=== PATIENT | female | born 1965 | race Caucasian/White ===

== ENCOUNTER 2017-07-26 09:47 | Observation (INO) | payer BC ==
[2017-07-26] MEDS ORDERED: Bupivacaine 0.25% SDV* 30 ML ONE (11:35)
[2017-07-26] MEDS ORDERED: Morphine INJ* 4 MG/ML 1 ML SYRINGE IV PRN (11:57)
[2017-07-26] MEDS ORDERED: Ondansetron INJ* 2 MG/ML VIAL IV PRN ×3 (11:58→16:16)
[2017-07-26] MEDS ORDERED: Lactated Ringers 500 ml BAG* 500 ML IV ONE (13:00)
[2017-07-26] MEDS ORDERED: ceFOXitin 2 GM IVPREMIX* 2 GM/50 ML BAG ONE (13:53)
[2017-07-26] MEDS ORDERED: ceFOXitin 2 GM IVPREMIX* 2 GM/50 ML BAG IVPB ONE (14:00)
[2017-07-26] MEDS ORDERED: Midazolam* 1 MG/ML 5 ML VIAL (5 MG) ONE (15:19)
[2017-07-26] MEDS ORDERED: fentaNYL* 50 MCG/ML 2 ML VIAL (100 MCG VIAL) ONE ×2 (15:24→17:28)
[2017-07-26] MEDS ORDERED: Atracurium* 10 MG/ML 10 ML VIAL ONE (15:24)
[2017-07-26] MEDS ORDERED: Propofol* 10 MG/ML 20 ML BTL IV PUSH ONE (15:24)
[2017-07-26] MEDS ORDERED: Succinylcholine* 20 MG/ML 10 ML VIAL ONE (15:24)
[2017-07-26] MEDS ORDERED: Dexamethasone IV* 4 MG/ML 1 ML (4 MG) ONE (15:58)
[2017-07-26] MEDS ORDERED: Ketorolac INJ* 30 MG/ML 1 ML VIAL ONE (15:58)
[2017-07-26] MEDS ORDERED: Ondansetron INJ* 2 MG/ML VIAL ONE (15:58)
[2017-07-26] MEDS ORDERED: HYDROmorphone* 1 MG/ML 1 ML SYR IV PRN ×2 (16:00→16:16)
[2017-07-26] MEDS ORDERED: DiMENhydriNATE IV* 50 MG/ML VIAL IV PUSH PRN (16:00)
[2017-07-26] MEDS ORDERED: oxyCODONE TAB* 5 MG TAB PO PRN (16:00)
[2017-07-26] MEDS ORDERED: HYDROcodone/ACETAMIN 5-325 MG* 1 TAB PO PRN (16:00)
[2017-07-26] MEDS ORDERED: Neostigmine Methylsulfate* 2 MG/2 ML SYRINGE ONE (16:12)
[2017-07-26] MEDS ORDERED: oxyCODONE/Acetamin 5/325 MG* TAB PO PRN (16:16)
[2017-07-26] MEDS ORDERED: Acetaminophen TAB* 325 MG PO PRN (16:20)
[2017-07-26] MEDS: fentaNYL* 50 MCG/ML 2 ML VIAL (100 MCG VIAL) IV PRN ×2 (17:29→17:34)
[2017-07-26] MEDS ORDERED: ZOSYN 3.375 GM x ONE DOSE over 30 miuntes IVPB ×4 (18:00→21:15)
[2017-07-26] MEDS: Ketorolac INJ* 30 MG/ML 1 ML VIAL IV SCH ×2 (21:16→22:59)
[2017-07-27] MEDS: NS 0.9% 1000 ML* 1,000 ML IV SCH ×2 (01:23→11:20)
[2017-07-27] MEDS: ZOSYN 3.375 GM Q8H per EXTENDED INFUSION IVPB SCH ×4 (01:53→10:28)
--- NOTE | 2017-07-27 03:36 | OP ---
CC: Dr. Samantha Rboertson * DATE OF OPERATION: 07/26/17 - ROOM #332 DATE OF : 69 SURGEON: Josr Smith MD WELDING MACHINE OPERATOR ARC: None. ANESTHESIOLOGIST: Dr. Johnson. ANESTHESIA: General anesthetic, local infiltration. PRE-OP DIAGNOSIS: Appendicitis. POST-OP DIAGNOSIS: Appendicitis. OPERATIVE PROCEDURE: Laparoscopic appendectomy. OPERATIVE FINDINGS: Acute appendicitis with suppurative changes and a small perforation with a fecalith. DESCRIPTION OF PROCEDURE: The patient was supine on the operative table. After adequate general anesthetic, compression stockings, Carly Hugger warmer, and intravenous antibiotics, the abdomen was prepped with antiseptic and draped in a sterile fashion. Local infiltrative anesthesia was administered and a small umbilical incision was created. A blunt port cannula was placed and insufflation was carried out with carbon-dioxide. Additional cannula 5 mm left lower quadrant and left mid abdomen were placed through a small stab wound under direct vision. The appendix was suppurative and upon further examination , there was a small perforation at the base of the appendix at the site of the fecalith. The fecalith popped out, but this was retrieved. Appendectomy was carried out using a kimbrough stapler load for the mesoappendix. The base of the appendix was divided using firings of the marks load stapler which completely encompassed the area of the perforation and created a very nice staple line. Everything was in good condition. The appendix was placed in a retrieval bag and brought out through the umbilical site and sent in formalin for pathologic evaluation along with the fecalith. The operative field was well irrigated with warm saline solution. Free fluid was suctioned out. No undrained collections could be identified and the cannula removed. Pneumoperitoneum allowed to escape. Umbilical fashion was closed with 0 Polysorb, skin with 5-0 Polysorb followed by Steri-Strips. She tolerated the procedure well, was awakened and brought to Recovery in good condition. No complications. No drains. Pathologic specimen appendix. Sponge and instrument count correct. Estimated blood lossless than 20 mL. [id number]/[facility] #: [id number] [facility]
[2017-07-27] MEDS: Ketorolac INJ* 30 MG/ML 1 ML VIAL IV SCH ×2 (05:29→11:14)
--- NOTE | 2017-07-27 13:42 | PN ---
Progress Note - Progress Note Date of Service: 07/27/17 SOAP: Subjective: Patient seen and examined. Doing better, has no complaints. Tolerating full liquids, passing flatus, ambulatory. Wants to go home. Objective: VSS, afebrile Lungs CTA bilat. Heart RRR, no murmurs. Abdomen soft, NT. ND. Incisions clean, dry and intact. Assessment: POD#1, s/p laparosocpic appendectomy, doing well. Plan: Discharge to home on PO Augmentin and Percocet F/U with Dr. Smith at [place] office next Tuesday
[2017-07-27 15:50] VITALS: BP 114/68
== END 2017-07-27 16:35 | disposition home or self-care (01) ==
LOC: SSU 11:38
PROVIDERS: ADMIT Surgery; ATTEND Surgery
DX: K35.3 Acute appendicitis with localized peritonitis (principal); K38.1 Appendicular concretions; E66.9 Obesity, unspecified; G47.33 Obstructive sleep apnea (adult) (pediatric); I48.91 Unspecified atrial fibrillation
CPT/HCPCS: 88304; 93005; 96365; 96375; A9270-GY; G0378; J0330; J0694; J1100; J1885; J2250; J2270; J2405; J2543; J2704; J3010

== ENCOUNTER 2018-01-02 19:07 | Inpatient (IN) | payer BC ==
[2018-01-02] MEDS ORDERED: Diltiazem IV* 5 MG/ML 5 ML VIAL (for loading dose/IV Push) (25 MG) IV SLOW PU ONE (19:49)
[2018-01-02] MEDS ORDERED: NS 0.9% 1000 ML* 1,000 ML IV ONE (19:49)
[2018-01-02] MEDS ORDERED: Digoxin IV* 0.5 MG/2 ML AMP (0.25 MG/ML) IV SLOW PU ONE (19:49)
[2018-01-02] MEDS ORDERED: Diltiazem DRIP* 100 MG/100 ML ADDV.BAG IVPB ONE (19:50)
[2018-01-02] MEDS ORDERED: Enoxaparin(*) 100 MG/ML SYR SUBCUT ONE (19:50)
--- NOTE | 2018-01-02 20:32 | ED ---
Bryson Vargas Thomas, scribed for Shawnee Lagunas MD on 01/02/18 at 2006 . Palpitations / Dysrhythmia - HPI Summary HPI Summary: The patient is a 52 year old female transferred from [facility] with complaints of racing palpitations for the last two days. The patient denies any chest pain, shortness of breath, or any other symptoms at this time. The patient had a similar episode of racing palpitation in 2014 that lasted for 12- 24 hours before she was cardioverted. She denies any other pertinent past medical history or medication use. - History of Current Complaint Chief Complaint: EDDysrhythmPalp Time Seen by Provider: 01/02/18 19:42 Hx Obtained From: Patient Onset/Duration: Lasting Days - 2, Still Present Timing: Constant Severity Initially: Severe Severity Currently: Moderate Alleviating: Nothing Associated Signs & Symptoms: Negative - CP, SOB - Allergy/Home Medications Allergies/Adverse Reactions: Allergies Allergy/AdvReac Type Severity Reaction Status Date / Time No Known Allergies Allergy Verified 10/14/15 06:42 PMH/Surg Hx/FS Hx/Imm Hx Endocrine/Hematology History: Reports: Hx Anticoagulant Therapy, Hx Blood Transfusions, Hx Anemia Denies: Hx Bone Marrow Disease, Hx Diabetes, Hx Systemic Lupus Erythematosus , Hx Sickle Cell Disease, Hx Thyroid Disease Cardiovascular History: Reports: Other Cardiovascular Problems/Disorders - Atrial fibrillation Respiratory History: Reports: Hx Pneumonia, Hx Sleep Apnea, Other Respiratory Problems/Disorders - pneumonia History: Reports: Hx Kidney Stones Musculoskeletal History: Reports: Other Musculoskeletal History - bilateral carpal tunnel Sensory History: Reports: Hx Contacts or Glasses - reading glasses Denies: Hx Eye Injury, Hx Eye Prosthesis, Hx Deafness, Hx Hearing Aid Opthamlomology History: Reports: Hx Contacts or Glasses - reading glasses Denies: Hx Eye Injury, Hx Eye Prosthesis - Surgical History Surgery Procedure, Year, and Place: hysterectomy 2012 Hx Anesthesia Reactions: No Infectious Disease History: No Infectious Disease History: Denies: Traveled Outside the [place] in Last 30 Days - Family History Known Family History: Negative: Blood Disorder - Social History Alcohol Use: Rare Substance Use Type: Reports: None Smoking Status (MU): Never Smoked Tobacco Review of Systems Negative: Fever Positive: Palpitations. Negative: Chest Pain Negative: Shortness Of Breath All Other Systems Reviewed And Are Negative: Yes Physical Exam - Summary Physical Exam Summary: VITAL SIGNS: Reviewed. GENERAL:~Patient is a well-developed and nourished FEMALE who is lying comfortable in the stretcher. Patient is not in any acute respiratory distress. HEAD AND FACE: No signs of trauma. No ecchymosis, hematomas or skull depressions. No sinus tenderness. EYES: PERRLA, EOMI x 2, No injected conjunctiva, no nystagmus. EARS: Hearing grossly intact. Ear canals and tympanic membranes are within normal limits. MOUTH: Oropharynx within normal limits. NECK: Supple, trachea is midline, no adenopathy, no JVD, no carotid bruit, no c- spine tenderness, neck with full ROM. CHEST: Symmetric, no tenderness at palpation LUNGS: Clear to auscultation bilaterally. No wheezing or crackles. CVS: Irregular tachycardia. S1 and S2 present, no murmurs or gallops appreciated. ABDOMEN: Soft, non-tender. No signs of distention. No rebound no guarding, and no masses palpated. Bowel sounds are normal. EXTREMITIES: FROM in all major joints, no edema, no cyanosis or clubbing. NEURO: Alert and oriented x 3. No acute neurological deficits. Speech is normal and follows commands. SKIN: Dry and warm Triage Information Reviewed: Yes Vital Signs On Initial Exam: Initial Vitals Temp Pulse Resp BP Pulse Ox 98 F 133 18 107/71 97 01/02/18 19:27 01/02/18 19:27 01/02/18 19:27 01/02/18 19:27 01/02/18 19:27 Vital Signs Reviewed: Yes Diagnostics - Vital Signs Vital Signs Temp Pulse Resp BP Pulse Ox 01/02/18 19:30 131 21 107/71 97 01/02/18 19:28 131 21 97 01/02/18 19:27 98 F 133 18 107/71 97 - Laboratory Lab Statement: Any lab studies that have been ordered have been reviewed, and results considered in the medical decision making process. Course/Dx - Course Assessment/Plan: The patient is a 52 year old female presenting with racing palpitations for the last two days. In the ED she was given Digoxin, Diltiazem, Lovenox, and IV fluids. She is admitted to Dr. Castillo. Diagnosis is atrial fibrillation. - Diagnoses Provider Diagnoses: Atrial fibrillation - Physician Notifications Discussed Care Of Patient With: Jerri Castillo Time Discussed With Above Provider: 20:31 Instructed by Provider To: Admit As Inpatient Discharge - Discharge Plan Condition: Stable Disposition: ADMITTED TO [facility] Referrals: No Primary Care Phys,NOPCP [Primary Care Provider] - The documentation as recorded by the Bryson adhikari Thomas accurately reflects the service I personally performed and the decisions made by me, Shawnee Lagunas MD.
[2018-01-02] MEDS ORDERED: Metoprolol Tartrate IV* 1 MG/ML 5 ML VIAL IV ONE (21:09)
[2018-01-02] MEDS ORDERED: Al Hydrox/Mg Hydrox/Simet LIQ* 30 ML UDC PO PRN (21:29)
[2018-01-02] MEDS ORDERED: Ondansetron INJ* 2 MG/ML VIAL IV PRN (21:29)
[2018-01-02] MEDS ORDERED: Acetaminophen TAB* 325 MG PO PRN (21:29)
[2018-01-02] MEDS ORDERED: Diltiazem IV VIAL* 125 MG in NS 0.9% 100 ML* 100 ML IV ONE (22:00)
[2018-01-02] MEDS ORDERED: Diltiazem DRIP* 100 MG/100 ML ADDV.BAG IVPB SCH (22:00)
[2018-01-02] MEDS: Diltiazem IV VIAL* 125 MG in NS 0.9% 100 ML* 100 ML IV SCH (22:40)
--- NOTE | 2018-01-02 23:04 | HP ---
CC: Dr. Robertson * HISTORY AND PHYSICAL: DATE OF ADMISSION: 01/02/18 TIME OF EVALUATION: 2099 PRIMARY CARE PHYSICIAN: Dr. Robertson. CHIEF COMPLAINT: Fluttering and chest discomfort. HISTORY OF PRESENT ILLNESS: This is a 52-year-old female with a past medical history of atrial fibrillation and obstructive sleep apnea, who transferred from [place] for rapid atrial fibrillation. The patient states she was cardioverted back in 2014 and she states she has not had any problems since then , but gets flutters off and on, on an average of few times a week. She states on Tuesday, the , she started getting fluttering and it never stopped. She was having some shortness of breath on exertion, some chest tightness. She was getting diaphoretic when exerting herself. No nausea. She went to [facility] for further evaluation. She denies any changes in her weight. She denies ever having a stress test. She states she drinks about 16 ounces of ice tea a day. She states she was diagnosed with obstructive sleep apnea, but does not wear the CPAP. Otherwise, remaining review of systems is negative. She recently had a URI illness, but it has improved about a month ago. At [place], the patient was given Lopressor 5 mg, Cardizem 10 mg and started on a drip, but her heart rate did not show significant improvement and remained in the 120s. She also had a slight bump in her troponin. The decision was made to transfer here for further Cardiology evaluation. The hospitalist service was called for further evaluation. PAST MEDICAL HISTORY: 1. History of atrial fibrillation, cardioverted in 2014. 2. Obstructive sleep apnea, does not wear her CPAP. PAST SURGICAL HISTORY: Hysterectomy. MEDICATIONS: None. ALLERGIES: No known drug allergies. FAMILY HISTORY: She states she is not sure, but her brother may have had a heart attack when he was 20, but she is not clear. Her mother at age 77 from dementia and congestive heart failure. Her father at age 83 from CHF and COPD. SOCIAL HISTORY: The patient lives at home with her , daughter, and 2 sons. She has 4 children. No history of tobacco. Rare alcohol use. 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 Her is her healthcare proxy. Code status is full code. REVIEW OF SYSTEMS: A 14-point review of systems as mentioned in the HPI, otherwise negative. PHYSICAL EXAMINATION GENERAL: No acute distress, resting comfortably with her 2 daughters and her son- in-law at the bedside. VITAL SIGNS: Temp 98, pulse rate 132, respiratory rate 24, oxygen saturation 98 % on room air, blood pressure 118/82. HEENT: Head normocephalic. Pupils equal and reactive. Anicteric. Oropharynx : Mucous membranes moist. NECK: Supple. No lymphadenopathy. RESPIRATORY: Clear to auscultation. No wheezes, rhonchi, rales. CARDIAC: Rapid rate. Irregularly irregular rate and rhythm. ABDOMEN: Soft, nontender, nondistended. EXTREMITIES: No clubbing, cyanosis, or edema. +2 DPs. NEUROLOGIC: Alert and oriented x3. No focal neurological deficits. DIAGNOSTIC STUDIES/LAB DATA: TSH here is 1.16. [place] laboratory data: Sodium 144, potassium 4.0, chloride 106, bicarb 24, BUN 22, creatinine 0.9. Troponin 0.029. White count 10, hemoglobin 14, hematocrit 42, platelets 249, 000. Radiographic data shows rapid atrial fibrillation with some ST depression. Chest x- ray from [place] showed low lung volumes with mild apparent pulmonary vascular congestion and mild apparent cardiomegaly. No focal consolidation or pleural effusion. ASSESSMENT: This is a 52-year-old female with a past medical history of atrial fibrillation, obstructive sleep apnea, does not wear a CPAP, presented to the emergency room with rapid atrial fibrillation from the [facility]. 1. Rapid atrial fibrillation. Assessment: The patient has known rapid atrial fibrillation, on 5 mg of diltiazem. No history of having a stress test in the past, could be ischemic related, could be related to her untreated obstructive sleep apnea. Plan: We will start her on Eliquis. We will titrate her diltiazem drip up to 10. Admit her to the ICU. Trend her troponin. Repeat her labs and her INR and troponin in the morning including a lipid panel as well. We will follow up with an EKG in the morning and I spoke with Dr. Rangel for plans for cardioversion. 2. Obstructive sleep apnea. See if she is willing to go on the CPAP this evening. 3. FEN. Heart healthy diet, n.p.o. in the morning. 4. DVT prophylaxis. The patient scores moderate risk. She is being started on Eliquis. 5. Code status is full code. TIME SPENT: Greater than 50 minutes spent doing the history and physical, more than half the time spent in direct patient contact. [id number]/[facility] #: [id number] DIAZ
[2018-01-03] MEDS: Apixaban* 5 MG TAB PO SCH ×3 (00:56→21:36)
[2018-01-03 06:03] LABS: ABS Basophils 0.1 10^3/ul (0-0.2); ABS Eosinophils 0.2 10^3/ul (0-0.6); ABS Lymphocytes 2.4 10^3/ul (1.0-4.8); ABS Monocytes 0.4 10^3/ul (0-0.8); ABS Neutrophils 3.5 10^3/ul (1.5-7.7); ABS Nucleated RBC 0 10^3/ul; Eosinophil % 3.1 % (0-6); Hematocrit 37 % (35-47); Hemoglobin 12.3 g/dl (12.0-16.0); Lymphocyte % 36.6 % (25-47); Mean Corpuscular HGB Conc 33 g/dl (31-36); Mean Corpuscular Hemoglobin 29 pg (27-31); Mean Corpuscular Volume 86 fL (80-97); Mean Platelet Volume 10 um3 (7.4-10.4); Nucleated Red Blood Cells % 0.1; Platelet Count 194 10^3/ul (150-450); Red Blood Count 4.28 10^6/ul (4.0-5.4); Red Cell Distribution Width 15 % (10.5-15); White Blood Count 6.6 10^3/ul (3.5-10.8)
[2018-01-03 06:14] LABS: INR 1.16 (0.77-1.02)
[2018-01-03 06:24] LABS: EGFR Non-African American 105.8 (>60)
[2018-01-03] MEDS: Diltiazem IV VIAL* 125 MG in NS 0.9% 100 ML* 100 ML IV SCH (08:35)
[2018-01-03] MEDS ORDERED: Influenza VAC *QUAD* 2017-18* 0.5 ML SYRINGE IM ONE (09:00)
[2018-01-03] MEDS: Aspirin EC TAB* 81 MG TAB.EC PO SCH (10:29)
[2018-01-03] MEDS ORDERED: Naloxone* 0.4 MG/ML 1 ML VIAL ONE (12:08)
[2018-01-03] MEDS ORDERED: fentaNYL* 50 MCG/ML 2 ML VIAL (100 MCG VIAL) ONE (12:08)
[2018-01-03] MEDS ORDERED: Lidocaine 2% VISCOUS* 15 ML UDC ONE (12:08)
[2018-01-03] MEDS ORDERED: Flumazenil* 0.1 MG/ML 5 ML MDV ONE (12:08)
[2018-01-03] MEDS ORDERED: Midazolam* 1 MG/ML 10 ML VIAL (10 MG) ONE (12:09)
[2018-01-03] MEDS ORDERED: Metoprolol Succinate XL TAB* 25 MG PO ONE (14:00)
--- NOTE | 2018-01-03 16:50 | TEE ---
Patient: DARREN HAWK Rec#: [id number] : 1965 Date: 01/03/2018 Age: 52y Height: 171 cm / 67.3 in Weight: 102 kg / 224.8 lbs Sex: F BSA: 2.13 Room#: ICU 10 Admit Date#: 01/02/2018 Type: Inpatient Referring: Parris Morris Performing: Daniel Rangel MD Reading: Daniel Rangel MD Structural Steel Fitter: Megan Nix RDCS,RDMS Nurse: Steven Gutierrez RN Transesophageal Echocardiogram Indication: AFIB BP: 104/68 HR: 144 Rhythm: A-Flutter Findings History: AFIB, MVP, DEON Technical Comments: The study quality is good. Left Ventricle: Mild concentric left ventricular hypertrophy is observed. Global left ventricular wall motion and contractility are within normal limits. There is normal left ventricular systolic function. The estimated ejection fraction is 55-60%. The assessment of diastolic function is non-diagnostic. Left Atrium: The left atrium is moderate to severely dilated. Spontaneous echo contrast is present in the left atrium cavity and appendage. A thrombus is visualized in the left atrial appendage. Right Ventricle: The right ventricular chamber size and systolic function are within normal limits. Right Atrium: The right atrium is mildly dilated. The bubble study is negative. A patent foramen ovale is not demonstrated with color Doppler and agitated contrast. Aortic Valve: The aortic valve is trileaflet. Systolic excursion of the aortic valve is normal. There is trace to mild aortic regurgitation. There is no evidence of aortic stenosis. Mitral Valve: There is moderate mitral valve prolapse. of the anterior MV leaflet There is mild to moderate mitral regurgitation. There is mild mitral stenosis. Tricuspid Valve: The tricuspid valve leaflets are normal. There is mild tricuspid regurgitation. There is evidence of mild pulmonary hypertension. Pulmonic Valve: The pulmonic valve appears normal. There is a trace pulmonic regurgitation. Pericardium: There is no significant pericardial effusion. Aorta: The aortic root appears normal. Pulmonary Artery: The main pulmonary artery appears normal. Venous: The inferior vena cava appears normal. The flow pattern of the pulmonary veins appear normal. The superior vena cava appears normal. SHMUEL Procedures: All standard views were attempted within the limitations of patient tolerance and safety. Study was abbreviated due to patients gag relex and excess secretions History and physical as well as labs were reviewed. The patient was in a fasting state. Risks and benefits of the procedure, including alternatives, were discussed and written informed consent was obtained. The patient and/or their health care patient account representative expressed understanding of the procedure, risks and benefits. Baseline and continuous monitoring of blood pressure, heart rate, pulse oximetry and heart rhythm was performed throughout the procedure. The appropriate time-out procedure was performed as per [facility] protocol. The patient was placed in the left lateral decubitus position. The patient's posterior pharynx was anesthetized with 20ml of 2% viscous lidocaine. The patient received IV Midazolam with a total dose of The patient received IV Fentanyl with a total dose of An oral bite block was inserted for protection of oral dentition. The multiplane transesophageal echocardiogram probe was inserted through the posterior oropharynx and advanced into the esophagus without difficulty. Multiple 2D images were obtained of the heart and its related structures. Color flow Doppler was used for evaluation. Spectral Doppler was also used. The atrial septum was interrogated with color flow Doppler. At the conclusion of the procedure the probe was removed with continuous suction without complications. The patient tolerated the procedure with no apparent complications. Contrast: Intravenous agitated saline contrast was used to assess intracardiac shunting. IMAGE 24 Conclusions Mild concentric left ventricular hypertrophy is observed. Global left ventricular wall motion and contractility are within normal limits. There is normal left ventricular systolic function. The estimated ejection fraction is 55-60%. The left atrium is moderate to severely dilated. Spontaneous echo contrast is present in the left atrium cavity and appendage. A thrombus is visualized in the left atrial appendage. The right ventricular chamber size and systolic function are within normal limits. A patent foramen ovale is not demonstrated with color Doppler and agitated contrast. There is trace to mild aortic regurgitation. There is mild to moderate mitral regurgitation. There is mild tricuspid regurgitation. There is no significant pericardial effusion. Measurements Name Value Normal Range TV Vmax 3.2 m/sec - TR Vmax 3.2 m/sec - TR peak gradient 41 mmHg - RAP 3 mmHg - RVSP 44 mmHg -
--- NOTE | 2018-01-03 17:02 | PN ---
Subjective Date of Service: 01/03/18 Interval History: C/o mild shortness of breath, Denies chest pain,abd pain or N/V/d. Family History: Unchanged from Admission Social History: Unchanged from Admission Past Medical History: Unchanged from Admission Objective Active Medications: Acetaminophen (Tylenol Tab*) 650 mg PO Q4H PRN PRN Reason: FEVER/PAIN Al Hydrox/Mg Hydrox/Simethicone (Maalox Plus*) 30 ml PO Q6H PRN PRN Reason: INDIGESTION Apixaban (Eliquis*) 5 mg PO BID [facility] Last Admin: 01/03/18 10:29 Dose: 5 mg Aspirin (Aspirin Ec Low Dose*) 81 mg PO DAILY [facility] Last Admin: 01/03/18 10:29 Dose: 81 mg Metoprolol Succinate (Toprol Xl Tab*) 25 mg PO BID [facility] Ondansetron HCl (Zofran Inj*) 4 mg IV Q4H PRN PRN Reason: NAUSEA/VOMITING Vital Signs - 8 hr 01/03/18 01/03/18 01/03/18 09:00 09:01 09:46 Temperature Pulse Rate 118 119 106 Respiratory 16 15 21 Rate Blood Pressure 125/92 (mmHg) O2 Sat by Pulse 98 97 95 Oximetry 01/03/18 01/03/18 01/03/18 09:55 10:00 10:24 Temperature Pulse Rate 98 124 90 Respiratory 14 21 18 Rate Blood Pressure 116/91 120/90 (mmHg) O2 Sat by Pulse 98 99 96 Oximetry 01/03/18 01/03/18 01/03/18 10:30 10:56 11:00 Temperature Pulse Rate 102 120 135 Respiratory 23 24 14 Rate Blood Pressure 116/99 111/88 (mmHg) O2 Sat by Pulse 96 97 95 Oximetry 01/03/18 01/03/18 01/03/18 11:30 12:00 12:31 Temperature Pulse Rate 105 89 133 Respiratory 24 12 18 Rate Blood Pressure 133/85 105/87 116/89 (mmHg) O2 Sat by Pulse 97 98 100 Oximetry 01/03/18 01/03/18 01/03/18 12:35 12:41 12:46 Temperature Pulse Rate 145 138 134 Respiratory 19 17 17 Rate Blood Pressure 137/95 94/63 131/86 (mmHg) O2 Sat by Pulse 100 96 96 Oximetry 01/03/18 01/03/1818 12:51 12:55 13:00 Temperature Pulse Rate 136 127 114 Respiratory 22 25 12 Rate Blood Pressure 117/95 130/78 (mmHg) O2 Sat by Pulse 95 94 93 Oximetry 01/03/18 01/03/18 01/03/18 13:01 13:11 13:15 Temperature Pulse Rate 111 125 116 Respiratory 25 29 14 Rate Blood Pressure 119/55 84/69 (mmHg) O2 Sat by Pulse 98 93 98 Oximetry 01/03/18 01/03/18 01/03/18 13:18 13:25 13:30 Temperature Pulse Rate 112 120 126 Respiratory 14 16 23 Rate Blood Pressure 73/57 90/68 102/68 (mmHg) O2 Sat by Pulse 97 95 95 Oximetry 01/03/18 01/03/18 01/03/18 13:34 13:45 14:00 Temperature Pulse Rate 102 127 129 Respiratory 17 13 15 Rate Blood Pressure 110/71 119/94 (mmHg) O2 Sat by Pulse 96 95 97 Oximetry 01/03/18 01/03/18 01/03/18 14:01 14:16 14:30 Temperature Pulse Rate 132 125 127 Respiratory 19 23 24 Rate Blood Pressure 90/68 106/78 (mmHg) O2 Sat by Pulse 99 97 97 Oximetry 01/03/18 01/03/18 01/03/18 14:46 14:48 15:00 Temperature Pulse Rate 110 134 120 Respiratory 26 23 16 Rate Blood Pressure 120/93 100/75 (mmHg) O2 Sat by Pulse 98 99 98 Oximetry 01/03/18 01/03/18 01/03/18 15:15 15:30 15:42 Temperature Pulse Rate 123 128 117 Respiratory 26 30 30 Rate Blood Pressure 118/79 103/74 (mmHg) O2 Sat by Pulse 99 95 98 Oximetry 01/03/18 01/03/18 01/03/18 15:45 16:00 16:15 Temperature 97.0 F Pulse Rate 128 116 107 Respiratory 26 26 23 Rate Blood Pressure 115/80 96/73 106/82 (mmHg) O2 Sat by Pulse 98 94 96 Oximetry 01/03/18 16:17 Temperature Pulse Rate 118 Respiratory 24 Rate Blood Pressure (mmHg) O2 Sat by Pulse 95 Oximetry Oxygen Devices in Use Now: None Appearance: appears comfortable lying in bed Eyes: No Scleral Icterus Ears/Nose/Mouth/Throat: Clear Oropharnyx, Mucous Membranes Moist Neck: NL Appearance and Movements; NL JVP, Trachea Midline Respiratory: Symmetrical Chest Expansion and Respiratory Effort, Clear to Auscultation Cardiovascular: NL Sounds; No Murmurs; No JVD, No Edema Abdominal: NL Sounds; No Tenderness; No Distention Extremities: No Edema, No Clubbing, Cyanosis Skin: No Rash or Ulcers Neurological: Alert and Oriented x 3 Nutrition: Taking PO's Result Diagrams: 01/03/18 05:51 01/03/18 05:51 Microbiology and Other Data: Microbiology 01/03/18 01:21 Nasal Screen MRSA (PCR)(CE) - Final Nasal Mrsa Not Detected Assess/Plan/Problems-Billing Assessment: Ms. Hamilton is a 52 y.o female that was transferred from [facility] for further evaluation of rapid a-fib. Patient reports a history of KRISTA in the past and was cardioverted in 2014 for the same. - Patient Problems (1) Atrial fibrillation with RVR Current Visit: No Status: Acute Code(s): I48.91 - UNSPECIFIED ATRIAL FIBRILLATION SNOMED Code(s): 541499538288000 Comment: Patient has a SHMUEL today which showed a thrombus in the LA appendage Will place on eliquis 5 mg BID Follow up with Dr. Rangel in 2 weeks will start lopressor 25 mg bid for rate control ~ PRN lopressor for heart rate greater than 120. Remains in A-fib rate 110 (2) DVT prophylaxis Current Visit: No Status: Acute Code(s): EOV0000 - SNOMED Code(s): 377595965 Comment: carol (3) Full code status Current Visit: No Status: Acute Code(s): Z78.9 - OTHER SPECIFIED HEALTH STATUS SNOMED Code(s): 026344876 Status and Disposition: possible discharge home tomorrow
--- NOTE | 2018-01-03 17:59 | CONS ---
CC: Dr. Parmjit Robertson, [place].* CARDIOLOGY CONSULTATION: DATE OF CONSULTATION: 01/03/18. INDICATION FOR CONSULTATION: Atrial flutter. HISTORY OF PRESENT ILLNESS: The patient is a 52-year-old female who I had seen back in 2014 for atrial fibrillation, at that time she got a cardioversion and has been stable since then. The patient states that on Tuesday, 3 days ago, she started noticing heart flutters. She said that it was on and off throughout the day but then became consistent at the end of the day. She felt like her heart was fluttering all day Tuesday, and Tuesday and decided to come to the emergency room. On arrival in the emergency room, she was in atrial flutter with a heart rate of 130 beats per minute. The patient denied any chest pain. She denies any orthopnea. She denies any lightheadedness, dizziness or syncope. The patient was admitted to the hospital. She was placed on the Cardizem drip. This morning patient's heart rate was 93 and irregular and she feels quite comfortable. PAST MEDICAL HISTORY: Significant for atrial fibrillation. She had a cardioversion in 2014. She has a history of sleep apnea. PAST SURGICAL HISTORY: Hysterectomy. MEDICATIONS: None. ALLERGIES: None. FAMILY HISTORY: No family history of early coronary artery disease or arrhythmias. SOCIAL HISTORY: She lives with her . She denies tobacco. She has rare alcohol use. She is a [id number] mom. PHYSICAL EXAMINATION: Weight is 227 pounds, heart rate is 99, blood pressure 125/92, respiratory rate is 15, oxygen saturation 97% on room air, temperature is 97.2. Sclerae anicteric. Oropharynx is pink without erythema. Carotids are 2+ without bruits. JVD is normal. Thyroid is normal. Cardiac Exam: S1, S2 without any murmur, rubs or gallops. She is irregular. PMI is normal. Lungs are clear to auscultation bilaterally. No dullness to percussion. Abdomen is soft, nontender, nondistended with normoactive bowel sounds. Extremities: Show no edema. She has 2+ pulses throughout. The patient is awake, and alert and oriented. She moves all 4 extremities equally. LABORATORY DATA: Chemistries within normal limits. BUN 15 , creatinine 0.6. TSH 1.16. Troponins are negative x2. EKG demonstrates atrial flutter with a heart rate of 93. IMPRESSION: This is a 52-year-old female with a history of atrial fibrillation. Her last episode was in 2014, who comes to the hospital because of heart fluttering. She was found to be in atrial flutter at a heart rate of 130. She is now down to a heart rate of 93. Currently, patient has no symptoms. For now my recommendation is that the patient undergo cardioversion back to normal sinus rhythm. Because her symptoms started more than 48 hours ago, the patient will undergo transesophageal echocardiogram to rule out any thrombus in her left atrial appendage before cardioversion. The patient will likely be discharged on Eliquis 5 mg a day, low dose beta- blockers. I will see the patient in followup after her hospitalization for further recommendations. [id number]/CPS #: [id number] MTDD
[2018-01-03] MEDS: Metoprolol Succinate XL TAB* 25 MG PO SCH (21:00)
[2018-01-03] MEDS: Metoprolol Tartrate IV* 1 MG/ML 5 ML VIAL IV PRN (21:36)
[2018-01-03] MEDS ORDERED: Diltiazem IV VIAL* 125 MG in NS 0.9% 100 ML* 100 ML IV SCH (23:00)
[2018-01-03] MEDS ORDERED: Diltiazem DRIP* 100 MG/100 ML ADDV.BAG IVPB SCH ×2 (23:00)
[2018-01-04] MEDS ORDERED: Diltiazem IV VIAL* 125 MG in NS 0.9% 100 ML* 100 ML IV SCH ×2 (00:02→02:41)
--- NOTE | 2018-01-04 05:12 | PN ---
Progress Note - Progress Note Date of Service: 01/04/18 Note: Paged for rapid afib - no improvement with PO and IV metoprolol. Diltiazem drip resumed and increased to 7.5 mg/hr
[2018-01-04 05:19] LABS: ABS Basophils 0.1 10^3/ul (0-0.2); ABS Eosinophils 0.2 10^3/ul (0-0.6); ABS Lymphocytes 2.1 10^3/ul (1.0-4.8); ABS Monocytes 0.5 10^3/ul (0-0.8); ABS Neutrophils 4.6 10^3/ul (1.5-7.7); ABS Nucleated RBC 0 10^3/ul; Hematocrit 39 % (35-47); Hemoglobin 12.9 g/dl (12.0-16.0); Lymphocyte % 27.8 % (25-47); Mean Corpuscular HGB Conc 33 g/dl (31-36); Mean Corpuscular Hemoglobin 28 pg (27-31); Mean Corpuscular Volume 86 fL (80-97); Mean Platelet Volume 10 um3 (7.4-10.4); Nucleated Red Blood Cells % 0.1; Platelet Count 207 10^3/ul (150-450); Red Blood Count 4.58 10^6/ul (4.0-5.4); Red Cell Distribution Width 15 % (10.5-15); White Blood Count 7.5 10^3/ul (3.5-10.8)
[2018-01-04 05:32] LABS: EGFR Non-African American 90.1 (>60)
[2018-01-04] MEDS ORDERED: Digoxin IV* 0.5 MG/2 ML AMP (0.25 MG/ML) IV SLOW PU ONE (09:10)
[2018-01-04] MEDS ORDERED: Diltiazem TAB* 60 MG PO SCH ×2 (09:23→12:00)
[2018-01-04] MEDS: Aspirin EC TAB* 81 MG TAB.EC PO SCH (10:09)
[2018-01-04] MEDS: Metoprolol Succinate XL TAB* 25 MG PO SCH (10:09)
[2018-01-04] MEDS: Apixaban* 5 MG TAB PO SCH ×2 (10:09→19:51)
--- NOTE | 2018-01-04 11:08 | PN ---
Subjective Date of Service: 01/04/18 Interval History: C/o mild shortness of breath, Denies chest pain,abd pain or N/V/d. Family History: Unchanged from Admission Social History: Unchanged from Admission Past Medical History: Unchanged from Admission Objective Active Medications: Acetaminophen (Tylenol Tab*) 650 mg PO Q4H PRN PRN Reason: FEVER/PAIN Al Hydrox/Mg Hydrox/Simethicone (Maalox Plus*) 30 ml PO Q6H PRN PRN Reason: INDIGESTION Apixaban (Eliquis*) 5 mg PO BID [facility] Last Admin: 01/04/18 10:09 Dose: 5 mg Aspirin (Aspirin Ec Low Dose*) 81 mg PO DAILY [facility] Last Admin: 01/04/18 10:09 Dose: 81 mg Diltiazem HCl (Cardizem Tab*) 60 mg PO Q6HR [facility] Last Admin: 01/04/18 09:42 Dose: 60 mg Metoprolol Succinate (Toprol Xl Tab*) 25 mg PO BID [facility] Last Admin: 01/04/18 10:09 Dose: 25 mg Metoprolol Tartrate (Lopressor Iv*) 5 mg IV Q4H PRN PRN Reason: HEART RATE/PULSE Last Admin: 01/03/18 21:36 Dose: 5 mg Ondansetron HCl (Zofran Inj*) 4 mg IV Q4H PRN PRN Reason: NAUSEA/VOMITING Vital Signs - 8 hr 01/04/18 01/04/18 01/04/18 03:16 03:18 03:30 Temperature 97.7 F Pulse Rate 75 77 49 Respiratory 16 Rate Blood Pressure 125/92 (mmHg) O2 Sat by Pulse 100 94 97 Oximetry 01/04/18 01/04/18 01/04/18 03:33 03:49 04:00 Temperature Pulse Rate 57 75 Respiratory Rate Blood Pressure 102/90 108/87 (mmHg) O2 Sat by Pulse 99 92 Oximetry 01/04/18 01/04/18 01/04/18 04:03 04:30 04:33 Temperature Pulse Rate 84 72 64 Respiratory Rate Blood Pressure 126/96 132/79 (mmHg) O2 Sat by Pulse 98 96 95 Oximetry 01/04/18 01/04/18 01/04/18 05:00 05:03 05:30 Temperature Pulse Rate 69 59 69 Respiratory Rate Blood Pressure 108/77 (mmHg) O2 Sat by Pulse 93 91 98 Oximetry 01/04/18 01/04/18 01/04/18 05:33 06:00 06:03 Temperature Pulse Rate 74 63 70 Respiratory Rate Blood Pressure 109/77 131/86 (mmHg) O2 Sat by Pulse 97 99 98 Oximetry 01/04/18 01/04/18 01/04/18 06:30 07:04 07:15 Temperature 97.5 F Pulse Rate 70 58 52 Respiratory 20 Rate Blood Pressure 98/78 89/75 (mmHg) O2 Sat by Pulse 99 97 98 Oximetry 01/04/18 01/04/18 01/04/18 07:30 08:00 08:03 Temperature Pulse Rate 80 59 Respiratory 16 Rate Blood Pressure 101/75 (mmHg) O2 Sat by Pulse 98 98 Oximetry 01/04/18 01/04/18 01/04/18 08:28 09:03 09:30 Temperature 97.6 F Pulse Rate 93 90 Respiratory 16 Rate Blood Pressure 98/78 117/77 (mmHg) O2 Sat by Pulse 95 99 Oximetry 01/04/18 01/04/18 01/04/18 09:37 09:55 10:03 Temperature Pulse Rate 98 110 Respiratory Rate Blood Pressure 119/74 114/78 108/82 (mmHg) O2 Sat by Pulse 99 Oximetry 01/04/18 10:53 Temperature 97.8 F Pulse Rate 92 Respiratory 18 Rate Blood Pressure 112/78 (mmHg) O2 Sat by Pulse 99 Oximetry Oxygen Devices in Use Now: Nasal Cannula Appearance: appears comfortable sitting in bed , no respiratory distress Eyes: No Scleral Icterus Ears/Nose/Mouth/Throat: Clear Oropharnyx, Mucous Membranes Moist Neck: NL Appearance and Movements; NL JVP, Trachea Midline Respiratory: Symmetrical Chest Expansion and Respiratory Effort, Clear to Auscultation Cardiovascular: NL Sounds; No Murmurs; No JVD, No Edema Abdominal: NL Sounds; No Tenderness; No Distention Extremities: No Edema, No Clubbing, Cyanosis Skin: No Rash or Ulcers Neurological: Alert and Oriented x 3 Nutrition: Taking PO's Result Diagrams: 01/04/18 04:31 01/04/18 04:31 Microbiology and Other Data: Microbiology 01/03/18 01:21 Nasal Screen MRSA (PCR)(CE) - Final Nasal Mrsa Not Detected Assess/Plan/Problems-Billing Assessment: Ms. Hamilton is a 52 y.o female that was transferred from [facility] for further evaluation of rapid a-fib. Patient reports a history of KRISTA in the past and was cardioverted in 2015 for the same. - Patient Problems (1) Atrial fibrillation with RVR Current Visit: No Status: Acute Code(s): I48.91 - UNSPECIFIED ATRIAL FIBRILLATION SNOMED Code(s): 686600792339928 Comment: Patient has a SHMUEL yesterday which showed a thrombus in the LA appendage Will place on eliquis 5 mg BID Follow up with Dr. Rangel in 2 weeks will start lopressor 25 mg bid for rate control ~ PRN lopressor IV for heart rate greater than 120. Remains in A-fib rate 90-128 Will start cardizem 60 mg every 6 hours and d/c cardizem drip 2 hours after po dose of cardizem Digoxin 0.5 mg IV x 1 (2) DVT prophylaxis Current Visit: No Status: Acute Code(s): OEF2027 - SNOMED Code(s): 477314855 Comment: carol (3) Full code status Current Visit: No Status: Acute Code(s): Z78.9 - OTHER SPECIFIED HEALTH STATUS SNOMED Code(s): 515649617 Status and Disposition: possible discharge home tomorrow
[2018-01-04] MEDS: Diltiazem TAB* 60 MG PO SCH ×2 (16:18→23:27)
--- NOTE | 2018-01-04 18:08 | PN ---
Subjective Date of Service: 01/04/18 - CC: heart pounding. Interval History: Pt has intermittant heart pounding. No SOB. Not using CPAP. Medications Active Medications: Acetaminophen (Tylenol Tab*) 650 mg PO Q4H PRN PRN Reason: FEVER/PAIN Al Hydrox/Mg Hydrox/Simethicone (Maalox Plus*) 30 ml PO Q6H PRN PRN Reason: INDIGESTION Apixaban (Eliquis*) 5 mg PO BID [facility] Last Admin: 01/04/18 10:09 Dose: 5 mg Aspirin (Aspirin Ec Low Dose*) 81 mg PO DAILY [facility] Last Admin: 01/04/18 10:09 Dose: 81 mg Diltiazem HCl (Cardizem Tab*) 60 mg PO Q6H [facility] Last Admin: 01/04/18 16:18 Dose: 60 mg Metoprolol Tartrate (Lopressor Iv*) 5 mg IV Q4H PRN PRN Reason: HEART RATE/PULSE Last Admin: 01/03/18 21:36 Dose: 5 mg Metoprolol Tartrate (Lopressor Tab*) 50 mg PO Q12HR [facility] Ondansetron HCl (Zofran Inj*) 4 mg IV Q4H PRN PRN Reason: NAUSEA/VOMITING Objective Vital Signs: Temp Pulse Resp BP Pulse Ox 98.4 F 49 16 118/68 99 01/04/18 15:04 01/04/18 15:04 01/04/18 15:04 01/04/18 16:00 01/04/18 15:04 Oxygen Devices in Use Now: Nasal Cannula Appearance: Overweight middle aged woman, seated, in NAD. Eyes: No Scleral Icterus, PERRLA Ears/Nose/Mouth/Throat: Clear Oropharnyx, Mucous Membranes Moist Neck: NL Appearance and Movements; NL JVP, Trachea Midline Respiratory: Symmetrical Chest Expansion and Respiratory Effort, Clear to Auscultation Cardiovascular: NL Sounds; No Murmurs; No JVD - distant, fast, irregular Abdominal: NL Sounds; No Tenderness; No Distention Extremities: No Edema, No Clubbing, Cyanosis Skin: No Rash or Ulcers Neurological: Alert and Oriented x 3, NL Muscle Strength and Tone Lines/Tubes/Other Access: Clean, Dry and Intact Peripheral IV Laboratory Results: 01/04/18 04:31 01/04/18 04:31 INR (Anticoag Therapy) 1.16 (0.77-1.02) H 01/03/18 05:51 Triglycerides 73 mg/dL 01/03/18 05:51 Cholesterol 171 mg/dL 01/03/18 05:51 LDL Cholesterol 115 mg/dL 01/03/18 05:51 HDL Cholesterol 41.8 mg/dL 01/03/18 05:51 TSH 1.16 mcIU/mL (0.34-5.60) 01/02/18 19:58 01/02/18 01/03/18 21:46 05:51 Troponin I 0.03 0.02 Diagnostic Imaging: SHMUEL 01/03/18 EF 55%, mild to mod MR, clot in MANUEL. Trace to mild AI, mild TR, PA pressure 44 EKG Data: Tele: afib, RVR. Assessment/Plan 52 yo female, overweight DEON and afib, rapid ventricular rate of uncertain duration with clot in left atrial appendage on anticoagulation and rate control. Preserved LV systolic function. Difficulty with rate control. Retry CPAP here, see if there is a mask she will tolerate. I doubled beta saud. Continue diltiazem for now. Continue anticoagulation. I discussed the need for several weeks of anticoagulation with the patient and her daughter. 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 -Anticoagulation indefinitely. -Antiarrhythmic therapy once clot cleared.
[2018-01-04] MEDS: Metoprolol Tartrate TAB* 50 mg PO SCH (19:47)
[2018-01-05] MEDS: Diltiazem TAB* 60 MG PO SCH ×4 (00:19→18:23)
[2018-01-05] MEDS ORDERED: Diltiazem TAB* 60 MG PO SCH (05:00)
[2018-01-05] MEDS: Apixaban* 5 MG TAB PO SCH ×2 (09:15→20:20)
[2018-01-05] MEDS: Metoprolol Tartrate TAB* 50 mg PO SCH ×2 (09:15→20:21)
[2018-01-05] MEDS: Aspirin EC TAB* 81 MG TAB.EC PO SCH (09:15)
--- NOTE | 2018-01-05 10:26 | PN ---
Subjective Date of Service: 01/05/18 Interval History: Patient seen and examined at bedside. Denies fever, chills, chest discomfort, N/ V/D. Pt reports palpitations and shortness of breath with the palpitations, this appears to correlate with her HR > 120. Tele: Afib, rate 70-110's, noted to be 120-140's since 10 am. Family History: Unchanged from Admission Social History: Unchanged from Admission Past Medical History: Unchanged from Admission Objective Active Medications: Acetaminophen (Tylenol Tab*) 650 mg PO Q4H PRN Reason: FEVER/PAIN Al Hydrox/Mg Hydrox/Simethicone (Maalox Plus*) 30 ml PO Q6H PRN Reason: INDIGESTION Apixaban (Eliquis*) 5 mg PO BID [facility] Aspirin (Aspirin Ec Low Dose*) 81 mg PO DAILY [facility] Diltiazem HCl (Cardizem Tab*) 60 mg PO Q6H [facility] Metoprolol Tartrate (Lopressor Iv*) 5 mg IV Q4H PRN Reason: HEART RATE/PULSE Metoprolol Tartrate (Lopressor Tab*) 50 mg PO Q12HR [facility] Ondansetron HCl (Zofran Inj*) 4 mg IV Q4H PRN Reason: NAUSEA/VOMITING Vital Signs - 8 hr 01/05/18 01/05/18 01/05/18 03:22 04:00 05:54 Temperature 97.4 F 97.4 F Pulse Rate 63 63 Respiratory 16 16 Rate Blood Pressure 102/64 102/64 110/80 (mmHg) O2 Sat by Pulse 100 100 Oximetry 01/05/18 01/05/18 01/05/18 07:38 08:00 09:03 Temperature 97.5 F Pulse Rate 68 57 Respiratory 16 16 Rate Blood Pressure 114/78 110/62 (mmHg) O2 Sat by Pulse 96 Oximetry Oxygen Devices in Use Now: Nasal Cannula Result Diagrams: 01/04/18 04:31 01/04/18 04:31 Microbiology and Other Data: Microbiology 01/03/18 01:21 Nasal Screen MRSA (PCR)(CE) - Final Nasal Mrsa Not Detected Assess/Plan/Problems-Billing Assessment: Ms. Hamilton is a 52 y.o female with PMH significant for afib and DEON that was transferred from [facility] for further evaluation of rapid a-fib. - Patient Problems (1) Atrial fibrillation with RVR Code(s): I48.91 - UNSPECIFIED ATRIAL FIBRILLATION SNOMED Code(s): 629967098376505 Comment: - Remaines in Afib with HR 90-130's - Patient had a SHMUEL which showed a thrombus in the LA appendage - Continue eliquis 5 mg BID, Lopressor 75 mg BID, cardizem 60 mg every 6 hours ( will change to 240 mg CD in AM), PRN lopressor IV for heart rate greater than 120 sustained for > 30 minutes. - Follow up with Dr. Rangel in 2 weeks (2) DEON (obstructive sleep apnea) Code(s): G47.33 - OBSTRUCTIVE SLEEP APNEA (ADULT) (PEDIATRIC) SNOMED Code(s): 53052117 Comment: - Pt doesn't like full face CPAP mask - Will get overnight pulse ox study to see if she need home O2 at HS (3) DVT prophylaxis Code(s): [id number] - SNOMED Code(s): 700722881 Comment: - Continue Eliquis (4) Full code status Code(s): Z78.9 - OTHER SPECIFIED HEALTH STATUS SNOMED Code(s): 278590606 Status and Disposition: Inpatient. Possible discharge to home in AM if HR better controlled.
--- NOTE | 2018-01-05 23:48 | PN ---
Progress Note - Progress Note Date of Service: 01/05/18 Note: Paged for several pauses - as long as 2 seconds. WIll hold Diltiazem dose 60 mg and lower AM dose to 120 mg of Diltiazem CD. STill on same metoprolol dose.
[2018-01-06 06:35] LABS: EGFR Non-African American 93.2 (>60)
[2018-01-06] MEDS: Apixaban* 5 MG TAB PO SCH ×2 (07:46→20:23)
[2018-01-06] MEDS: Metoprolol Tartrate TAB* 50 mg PO SCH ×2 (07:46→20:24)
[2018-01-06] MEDS: Aspirin EC TAB* 81 MG TAB.EC PO SCH (07:46)
[2018-01-06] MEDS ORDERED: Diltiazem CD CAP* 240 MG PO SCH (09:00)
[2018-01-06] MEDS ORDERED: Diltiazem CD CAP* 120 MG PO SCH (09:00)
[2018-01-06] MEDS: Metoprolol Tartrate IV* 1 MG/ML 5 ML VIAL IV PRN ×2 (16:25→21:07)
--- NOTE | 2018-01-06 18:10 | PN ---
Subjective Date of Service: 01/06/18 Interval History: Patient seen and examined at bedside. Denies fever, chills, shortness of breath , chest discomfort, N/V/D. Pt states that she is feeling well. Tele: Afib, rate 110-140's. Pt is mostly in the 110-120's. Pt noted to have several ~ 2 second pauses overnight. Family History: Unchanged from Admission Social History: Unchanged from Admission Past Medical History: Unchanged from Admission Objective Active Medications: Acetaminophen (Tylenol Tab*) 650 mg PO Q4H PRN Reason: FEVER/PAIN Al Hydrox/Mg Hydrox/Simethicone (Maalox Plus*) 30 ml PO Q6H PRN Reason: INDIGESTION Apixaban (Eliquis*) 5 mg PO BID [facility] Aspirin (Aspirin Ec Low Dose*) 81 mg PO DAILY [facility] Diltiazem HCl (Cardizem Cd Cap*) 120 mg PO DAILY [facility] Metoprolol Tartrate (Lopressor Iv*) 5 mg IV Q4H PRN Reason: HEART RATE/PULSE Metoprolol Tartrate (Lopressor Tab*) 75 mg PO Q12HR [facility] Ondansetron HCl (Zofran Inj*) 4 mg IV Q4H PRN Reason: NAUSEA/VOMITING Vital Signs - 8 hr 01/06/18 01/06/18 01/06/18 11:20 15:38 15:53 Temperature 98.0 F 97.3 F Pulse Rate 121 120 Respiratory 16 18 Rate Blood Pressure 115/95 114/61 (mmHg) O2 Sat by Pulse 99 98 Oximetry Oxygen Devices in Use Now: None Appearance: NAD, sitting up in a chair Ears/Nose/Mouth/Throat: Mucous Membranes Moist Respiratory: Symmetrical Chest Expansion and Respiratory Effort, Clear to Auscultation Cardiovascular: NL Sounds; No Murmurs; No JVD, - - Heart raete irregular Abdominal: NL Sounds; No Tenderness; No Distention Extremities: No Edema Skin: No Rash or Ulcers Neurological: Alert and Oriented x 3, NL Muscle Strength and Tone Lines/Tubes/Other Access: Clean, Dry and Intact Peripheral IV - site benign Nutrition: Taking PO's Result Diagrams: 01/04/18 04:31 01/06/18 05:51 Microbiology and Other Data: Microbiology 01/03/18 01:21 Nasal Screen MRSA (PCR)(CE) - Final Nasal Mrsa Not Detected Assess/Plan/Problems-Billing Assessment: Ms. Hamilton is a 52 y.o female with PMH significant for afib and DEON that was transferred from [facility] for further evaluation of rapid a-fib. - Patient Problems (1) Atrial fibrillation with RVR Code(s): I48.91 - UNSPECIFIED ATRIAL FIBRILLATION SNOMED Code(s): 428136936559156 Comment: - Remaines in Afib with HR 110-140's - Patient had a SHMUEL which showed a thrombus in the LA appendage - Continue eliquis 5 mg BID, Lopressor 75 mg BID, cardizem CD 240 mg daily ( increased - Cardiology is ok with ~ 2 sec pauses while she is sleeping), PRN lopressor IV for heart rate greater than 120 sustained for > 30 minutes. - Follow up with Dr. Rangel in 2 weeks (2) DEON (obstructive sleep apnea) Code(s): G47.33 - OBSTRUCTIVE SLEEP APNEA (ADULT) (PEDIATRIC) SNOMED Code(s): 28733103 Comment: - Pt doesn't like full face CPAP mask - Overnight pulse ox study - O2 sat < 90% for ~ 3.5 hours - Will try nasal pillow with CPAP tonight - Pt will need nocturnal O2 or CPAP at discharge (3) DVT prophylaxis Code(s): KUL1764 - SNOMED Code(s): 936383186 Comment: - Continue Eliquis (4) Full code status Code(s): Z78.9 - OTHER SPECIFIED HEALTH STATUS SNOMED Code(s): 363195606 Status and Disposition: Inpatient. Possible discharge to home in AM if HR better controlled.
--- NOTE | 2018-01-07 08:44 | PN ---
Subjective Date of Service: 01/07/18 Interval History: Ms. Hamilton states that she is feeling relatively well today. She does have some mild lightheadness when her heart rate is elevated. She was also short of breath with ambulation this afternoon despite the fact that her heart rate is controlled. Family History: Unchanged from Admission Social History: Unchanged from Admission Past Medical History: Unchanged from Admission Objective Active Medications: Acetaminophen (Tylenol Tab*) 650 mg PO Q4H PRN Al Hydrox/Mg Hydrox/Simethicone (Maalox Plus*) 30 ml PO Q6H PRN Apixaban (Eliquis*) 5 mg PO BID [facility] Aspirin (Aspirin Ec Low Dose*) 81 mg PO DAILY [facility] Diltiazem HCl (Cardizem Cd Cap*) 240 mg PO DAILY [facility] Metoprolol Tartrate (Lopressor Iv*) 5 mg IV Q4H PRN Metoprolol Tartrate (Lopressor Tab*) 75 mg PO Q12HR [facility] Ondansetron HCl (Zofran Inj*) 4 mg IV Q4H PRN Vital Signs: Temp Pulse Resp BP Pulse Ox 97.2 F 110 16 103/77 99 01/07/18 04:15 01/07/18 04:15 01/07/18 07:23 01/07/18 04:15 01/07/18 04:15 Oxygen Devices in Use Now: None Appearance: Female ambulating with some mild SOB Eyes: No Scleral Icterus Ears/Nose/Mouth/Throat: Mucous Membranes Moist Neck: Trachea Midline Respiratory: Symmetrical Chest Expansion and Respiratory Effort, Clear to Auscultation Cardiovascular: NL Sounds; No Murmurs; No JVD, No Edema Abdominal: NL Sounds; No Tenderness; No Distention Lymphatic: No Cervical Adenopathy Extremities: No Edema Skin: No Rash or Ulcers Neurological: Alert and Oriented x 3, NL Muscle Strength and Tone Nutrition: Taking PO's Result Diagrams: 01/04/18 04:31 01/06/18 05:51 Microbiology and Other Data: . Assess/Plan/Problems-Billing Assessment: Ms. Hamilton is a 52 yo female with PMH significant for afib and DEON that was transferred from [facility] with rapid a-fib. - Patient Problems (1) Atrial fibrillation with RVR Comment: - Remaines in Afib but HR improved. - Patient had a SHMUEL which showed a thrombus in the LA appendage - Continue eliquis 5 mg BID. - Continue verapamil and metoprolol. - Follow up with Dr. Rangel in 2 weeks (2) Pulmonary vascular congestion Comment: - Cxray with pulmonary vascular congestion. - Secondary to rapid afib. - Lasix x 1 now. (3) DEON (obstructive sleep apnea) Comment: - Pt doesn't like full face CPAP mask - Overnight pulse ox study - O2 sat < 90% for ~ 3.5 hours - Nasal pillow with CPAP tonight - Pt will need nocturnal O2 or CPAP at discharge (4) DVT prophylaxis Comment: - Continue Eliquis (5) Full code status Comment: Status and Disposition: Inpatient.
[2018-01-07] MEDS ORDERED: Diltiazem CD CAP* 240 MG PO SCH (09:00)
[2018-01-07] MEDS: Aspirin EC TAB* 81 MG TAB.EC PO SCH (10:10)
[2018-01-07] MEDS: Metoprolol Tartrate TAB* 50 mg PO SCH ×2 (10:10→21:24)
[2018-01-07] MEDS: Apixaban* 5 MG TAB PO SCH ×2 (10:10→21:24)
[2018-01-07] MEDS: Verapamil SR TAB* 240 MG PO SCH (10:30)
--- NOTE | 2018-01-07 12:02 | PN ---
Subjective Date of Service: 01/07/18 - CC: head ache walking. Interval History: Pt has intermittant heart pounding. No SOB. Head ache walking. Still not using CPAP, see respiratory notes. Rates still high on monitor. No constipation or leg swelling with diltiazem. Medications Active Medications: Acetaminophen (Tylenol Tab*) 650 mg PO Q4H PRN PRN Reason: FEVER/PAIN Al Hydrox/Mg Hydrox/Simethicone (Maalox Plus*) 30 ml PO Q6H PRN PRN Reason: INDIGESTION Apixaban (Eliquis*) 5 mg PO BID [facility] Last Admin: 01/07/18 10:10 Dose: 5 mg Aspirin (Aspirin Ec Low Dose*) 81 mg PO DAILY [facility] Last Admin: 01/07/18 10:10 Dose: 81 mg Metoprolol Tartrate (Lopressor Iv*) 5 mg IV Q4H PRN PRN Reason: HEART RATE/PULSE Last Admin: 01/06/18 21:07 Dose: 5 mg Metoprolol Tartrate (Lopressor Tab*) 75 mg PO Q12HR [facility] Last Admin: 01/07/18 10:10 Dose: 75 mg Ondansetron HCl (Zofran Inj*) 4 mg IV Q4H PRN PRN Reason: NAUSEA/VOMITING Verapamil HCl (Calan Sr Tab*) 240 mg PO DAILY [facility] Last Admin: 01/07/18 10:30 Dose: 240 mg Objective Vital Signs: Temp Pulse Resp BP Pulse Ox 97.9 F 133 16 97/82 99 01/07/18 08:24 01/07/18 08:24 01/07/18 08:24 01/07/18 08:24 01/07/18 08:24 Oxygen Devices in Use Now: None Appearance: Overweight middle aged woman, seated, in NAD. Eyes: No Scleral Icterus, PERRLA Ears/Nose/Mouth/Throat: Clear Oropharnyx, Mucous Membranes Moist Neck: NL Appearance and Movements; NL JVP, Trachea Midline Respiratory: Symmetrical Chest Expansion and Respiratory Effort, Clear to Auscultation Cardiovascular: NL Sounds; No Murmurs; No JVD - distant, fast, irregular Abdominal: NL Sounds; No Tenderness; No Distention Extremities: No Edema, No Clubbing, Cyanosis Skin: No Rash or Ulcers Neurological: Alert and Oriented x 3, NL Muscle Strength and Tone Lines/Tubes/Other Access: Clean, Dry and Intact Peripheral IV Laboratory Results: 01/04/18 04:31 01/06/18 05:51 INR (Anticoag Therapy) 1.16 (0.77-1.02) H 01/03/18 05:51 Triglycerides 73 mg/dL 01/03/18 05:51 Cholesterol 171 mg/dL 01/03/18 05:51 LDL Cholesterol 115 mg/dL 01/03/18 05:51 HDL Cholesterol 41.8 mg/dL 01/03/18 05:51 TSH 1.16 mcIU/mL (0.34-5.60) 01/02/18 19:58 01/02/18 01/03/18 21:46 05:51 Troponin I 0.03 0.02 Diagnostic Imaging: SHMUEL 01/03/18 EF 55%, mild to mod MR, clot in MANUEL. Trace to mild AI, mild TR, PA pressure 44 EKG Data: Tele: afib, RVR (130 bpm). Assessment/Plan 52 yo female, overweight DEON and afib, rapid ventricular rate of uncertain duration with clot in left atrial appendage on anticoagulation and rate control. Preserved LV systolic function. Difficulty with rate control. Continue current metoprolol dose. Trial of verapamil to replace Diltiazem CD 240 mg. 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 -Anticoagulation indefinitely. -Antiarrhythmic therapy once clot cleared. -May be a good AF ablation candidate.
[2018-01-07] MEDS ORDERED: Metoprolol Tartrate TAB* 25 MG PO ONE (13:40)
--- NOTE | 2018-01-07 16:08 | RAD ---
HISTORY: Shortness of breath COMPARISONS: January 02, 2018 VIEWS: 1: frontal portable view of the chest at 3:36 PM FINDINGS: LINES AND TUBES: None. CARDIOMEDIASTINAL SILHOUETTE: The cardiomediastinal silhouette is normal for portable technique. PLEURA: The costophrenic angles are sharp. No pleural abnormalities are noted. LUNG PARENCHYMA: There is prominence of the central pulmonary vasculature. ABDOMEN: The upper abdomen is clear. There is no subphrenic gas. BONES AND SOFT TISSUES: No bone or soft tissue abnormalities are noted. IMPRESSION: PULMONARY VASCULAR CONGESTION.
[2018-01-07] MEDS ORDERED: Furosemide IV* 10 MG/ML 2 ML VIAL (20 MG) IV ONE (16:20)
[2018-01-08] MEDS ORDERED: Metoprolol Tartrate TAB* 50 mg PO SCH ×2 (07:15→21:00)
[2018-01-08] MEDS ORDERED: Metoprolol Tartrate TAB* 100 MG TAB PO ONE (08:07)
[2018-01-08] MEDS: Aspirin EC TAB* 81 MG TAB.EC PO SCH (09:29)
[2018-01-08] MEDS: Apixaban* 5 MG TAB PO SCH (09:29)
[2018-01-08] MEDS: Verapamil SR TAB* 240 MG PO SCH (09:29)
[2018-01-08 11:41] VITALS: BP 94/73
--- NOTE | 2018-01-08 13:06 | PN ---
Subjective Date of Service: 01/08/18 Interval History: Ms. Hamilton states that she feels about the same today. She has some palpitations at times and she is dyspneic with exertion. She denies other complaint including chest pain, nausea, or abdominal pain. She is tolerating oral intake well. Family History: Unchanged from Admission Social History: Unchanged from Admission Past Medical History: Unchanged from Admission Objective Active Medications: Acetaminophen (Tylenol Tab*) 650 mg PO Q4H PRN Al Hydrox/Mg Hydrox/Simethicone (Maalox Plus*) 30 ml PO Q6H PRN Apixaban (Eliquis*) 5 mg PO BID ENMA Aspirin (Aspirin Ec Low Dose*) 81 mg PO DAILY ENMA Metoprolol Tartrate (Lopressor Tab*) 100 mg PO BID ENMA Ondansetron HCl (Zofran Inj*) 4 mg IV Q4H PRN Verapamil HCl (Calan Sr Tab*) 240 mg PO DAILY [facility] Vital Signs: Temp Pulse Resp BP Pulse Ox 97.6 F 50 16 94/73 99 01/08/18 11:19 01/08/18 11:19 01/08/18 11:19 01/08/18 11:19 01/08/18 11:19 Oxygen Devices in Use Now: None Appearance: Female sitting up in chair in NAD Eyes: No Scleral Icterus Ears/Nose/Mouth/Throat: NL Teeth, Lips, Gums Neck: NL Appearance and Movements; NL JVP, Trachea Midline Respiratory: Symmetrical Chest Expansion and Respiratory Effort, Clear to Auscultation Cardiovascular: NL Sounds; No Murmurs; No JVD, No Edema Abdominal: NL Sounds; No Tenderness; No Distention Lymphatic: No Cervical Adenopathy Extremities: No Edema Skin: No Rash or Ulcers Neurological: Alert and Oriented x 3, NL Muscle Strength and Tone Nutrition: Taking PO's Result Diagrams: 01/04/18 04:31 01/06/18 05:51 Microbiology and Other Data: . Assess/Plan/Problems-Billing Assessment: Ms. Hamilton is a 52 yo female with PMH significant for afib and DEON that was transferred from [facility] with rapid a-fib. - Patient Problems (1) Atrial fibrillation with RVR Comment: - HR elevated, but had dip into 50s yesterday afternoon. - Patient had a SHMUEL which showed a thrombus in the LA appendage. - May need pacemaker but will first need anticoagulation for thrombus. - Continue eliquis 5 mg BID. - Continue verapamil and metoprolol. - Follow up with Dr. Rangel in 2 weeks. (2) Pulmonary vascular congestion Comment: - Resolving. (3) DEON (obstructive sleep apnea) Comment: - Plan for nocturnal O2 until follow up with pulmonology for sleep study and fitting for CPA with nasal pillow as tolerated. (4) DVT prophylaxis Comment: - Continue Eliquis (5) Full code status Comment: Status and Disposition: Inpatient. Discharge to home.
--- NOTE | 2018-01-08 13:44 | PN ---
Subjective Date of Service: 01/08/18 - CC: ELY Interval History: SOB walking. With change to verapamil and an extra 25 mg Toprol yesterday HR went to 50's. Now with verapamil and usual Toprol dose the patient's rates in the low 100's. Aware of yesterday's CXR showing mild CHF, per patient with diuretic no improvement. Medications Active Medications: Acetaminophen (Tylenol Tab*) 650 mg PO Q4H PRN PRN Reason: FEVER/PAIN Al Hydrox/Mg Hydrox/Simethicone (Maalox Plus*) 30 ml PO Q6H PRN PRN Reason: INDIGESTION Apixaban (Eliquis*) 5 mg PO BID [facility] Last Admin: 01/08/18 09:29 Dose: 5 mg Aspirin (Aspirin Ec Low Dose*) 81 mg PO DAILY [facility] Last Admin: 01/08/18 09:29 Dose: 81 mg Metoprolol Tartrate (Lopressor Tab*) 100 mg PO BID [facility] Ondansetron HCl (Zofran Inj*) 4 mg IV Q4H PRN PRN Reason: NAUSEA/VOMITING Verapamil HCl (Calan Sr Tab*) 240 mg PO DAILY [facility] Last Admin: 01/08/18 09:29 Dose: 240 mg Objective Vital Signs: Temp Pulse Resp BP Pulse Ox 97.6 F 50 16 94/73 99 01/08/18 11:19 01/08/18 11:19 01/08/18 11:19 01/08/18 11:19 01/08/18 11:19 Oxygen Devices in Use Now: None Appearance: Overweight middle aged woman, seated, in NAD. Eyes: No Scleral Icterus, PERRLA Ears/Nose/Mouth/Throat: Clear Oropharnyx, Mucous Membranes Moist Neck: NL Appearance and Movements; NL JVP, Trachea Midline Respiratory: Symmetrical Chest Expansion and Respiratory Effort, Clear to Auscultation Cardiovascular: NL Sounds; No Murmurs; No JVD - distant, fast, irregular Abdominal: NL Sounds; No Tenderness; No Distention Extremities: No Edema, No Clubbing, Cyanosis Skin: No Rash or Ulcers Neurological: Alert and Oriented x 3, NL Muscle Strength and Tone Lines/Tubes/Other Access: Clean, Dry and Intact Peripheral IV Laboratory Results: 01/04/18 04:31 01/06/18 05:51 INR (Anticoag Therapy) 1.16 (0.77-1.02) H 01/03/18 05:51 Triglycerides 73 mg/dL 01/03/18 05:51 Cholesterol 171 mg/dL 01/03/18 05:51 LDL Cholesterol 115 mg/dL 01/03/18 05:51 HDL Cholesterol 41.8 mg/dL 01/03/18 05:51 TSH 1.16 mcIU/mL (0.34-5.60) 01/02/18 19:58 01/02/18 01/03/18 21:46 05:51 Troponin I 0.03 0.02 Diagnostic Imaging: SHMUEL 01/03/18 EF 55%, mild to mod MR, clot in MANUEL. Trace to mild AI, mild TR, PA pressure 44 CXR 01/07/18: CHF/prominent pulmonary vasculature. EKG Data: Tele: afib, afib, occ PVC's 50's yesterday afternoon, now afib RVR (100-1 teens ) bpm). Assessment/Plan 52 yo female, overweight DEON and afib, rapid ventricular rate of uncertain duration with clot in left atrial appendage on anticoagulation and rate control. Preserved LV systolic function. Difficulty with rate control. Continue current metoprolol dose. Continue verapamil instead of Cardizem. 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 -Anticoagulation indefinitely. -Antiarrhythmic therapy once clot cleared. -May be a good AF ablation candidate. I had a long discussion with the patient, her and daughter about the limitations of making her feel better with just rate control. I don't feel a pacer to allow for more aggressive control would help her at this point, and it would delay retrial of CV. Discussed recommendation of going home on current medications and symptom limited activity. She may need a diuretic 2 or 3 days a week, mechanisms of fluid retention reviewed and I discussed daily weights. Should get f/u with Dr. Rangel in 5-10 days with ECG in office.
--- NOTE | 2018-01-09 12:13 | DS ---
CC: Dr. Rangel; Dr. Dereje Robertson * [facility] DISCHARGE SUMMARY: DATE OF ADMISSION: 01/02/18 DATE OF DISCHARGE: 01/08/18 ATTENDING PHYSICIAN: Dr. Michele Capone * (dictation provided by Latisha Connor NP). PRIMARY DIAGNOSIS: Atrial fibrillation with rapid ventricular response. SECONDARY DIAGNOSES: 1. History of atrial fibrillation. 2. Obstructive sleep apnea, not on CPAP. PAST SURGICAL HISTORY: Hysterectomy. MEDICATIONS AT THE TIME OF DISCHARGE: 1. Verapamil 240 mg p.o. daily. 2. Metoprolol tartrate 100 mg p.o. b.i.d. 3. Aspirin 81 mg p.o. daily. 4. Apixaban 5 mg p.o. b.i.d. HOSPITAL COURSE: Ms. Hamilton is a 52-year-old female with a past medical history of AFib and obstructive sleep apnea not wearing a CPAP due to inability to tolerate it, who presented to the hospital on 01/02/18 with concerns for fluttering and chest discomfort. Please see the dictated H and P from Dr. Parris Morris for complete details. In brief, the patient states that she had a history of AFib including cardioversion back in 2014. She had a feeling of fluttering and chest discomfort starting starting on 12/31/17, as well as some shortness of breath. She was evaluated at [facility] and then transitioned here for further treatment. Ms. Hamilton had a transesophageal echocardiogram, which showed a " transesophageal echocardiogram that showed mild concentric left ventricular hypertrophy, global left ventricular wall motion and contractility are within normal limits. There is normal left ventricular systolic function. The estimated ejection fraction is 55- 60%. The left atrium is moderate to severely dilated. Spontaneous echocontrast is present in the left atrium cavity and appendage. A thrombus is visualized in the left atrial appendage. A patent foramen ovale is not demonstrated with color Doppler and." The patient was seen in consultation by Dr. Rangel who is her home automation qa lead. He had hoped for cardioversion, but was unable to perform it as per the above noted thrombus in the left atrial appendage. During the hospitalization, Ms. Hamilton's medications were adjusted. She is currently on Verapamil 240 mg p.o. daily with metoprolol tartrate 100 mg b.i.d. Efforts made at increasing the metoprolol yesterday appeared to have caused the patient to have a heart rate down into the 50s. This morning she has a heart rate up into the 130s. There was concern that perhaps the patient will ultimately be found to have tachybrady syndrome and require a pacemaker; however , at this point, she needs anticoagulation for the left atrial thrombus. Unfortunately, we will not be able to more aggressively titrate her medications today. It is hoped that when she is on the verapamil longer that perhaps she will have better control. Ms. Hamilton was ambulating in the unit with some dyspnea on exertion, had some intermittent palpitations, but she is minimally symptomatic. Our plans are for her to be discharged home to follow up with Dr. Rangel closely regarding continued adjustment of medications as needed and continued consideration for possible pacemaker. Ms. Hamilton is medically stable for discharge. DISPOSITION: Home. DIET: Regular. ACTIVITY: As tolerated. FOLLOWUP PLANS: 1. Please follow up with Dr. Rangel in the next 1 to 2 weeks. 2. Please follow up with Dr. Robertson in the next week. 3. Please continue medications for AFib including Verapamil, metoprolol and Eliquis and the patient has been encouraged to return to the emergency room should she have any lightheaded dizziness or shortness of breath or chest pain above and beyond what has been seen here in the hospital thus far. TIME SPENT: Approximately 60 minutes was spent on the discharge of this patient , more than half of the time was spent with the patient at the bedside reviewing the events leading up to this hospitalization, performing the physical examination and reviewing the plan of care. LATISHA CONNOR, VINICIO [id number]/[facility] #: [id number] DIAZ
== END 2018-01-08 15:35 | disposition home or self-care (01) | DRG 201 ==
LOC: ED 19:07 → ICU 21:29 → MEDTELE 01-03 20:41 → UNDODISIN 01-08 15:15
PROVIDERS: ADMIT Pediatrics; ATTEND Internal Medicine
PROC: B246ZZ4 Ultrasonography of Right and Left Heart, Transesophageal (ICD-10-PCS; principal; 2018-01-03)
DX: I48.91 Unspecified atrial fibrillation (principal); I51.3 Intracardiac thrombosis, not elsewhere classified; G47.33 Obstructive sleep apnea (adult) (pediatric); Z82.5 Family history of asthma and other chronic lower respiratory diseases; Z82.49 Family history of ischemic heart disease and other diseases of the circulatory system
CPT/HCPCS: 36415; 71045; 80048; 80061; 83735; 84443; 84484; 85025; 85610; 87641; 90686; 93005; 94760; 94762; 99285; A9270-GY; J1160; J1650; J1940; J2250; J2310; J3010; J3490